=== PATIENT | female | born 1975 | race Caucasian/White ===

== ENCOUNTER → 2016-09-29 | Outpatient (CLI) | payer BC ==
--- NOTE | ~2016-09-29 | MY11 ---
[facility] A Service of [facility] RADIOLOGY TEXT RESULTS PATIENT: ALYSHA GARCÍA LOCATION: [facility] : 73 UNIT #: [id number] AGE: [address]: Mason Barron MD SEX: F ORDER DR: [id number] [address] [id number] O MR#: [id number] Acc #: [id number] NAME: ALYSHA GARCÍA : 1975 SEX: F STUDY DATE/TIME: 09/29/2016 8:06 UNIT: [facility] ROOM: STUDY DESCRIPTION: MY Mammogram Screening Dig Aakash Attending Physician: Mason Barron M.D. Referring Physician: Mason Barron M.D. Ordering Physician: Mason Barron M.D. Primary Care Physician: Mason Barron M.D. MEDICAL IMAGING REPORT This report is preliminary unless electronic signature is present EXAM Digital screening mammogram with CAD INDICATION Routine screening. PROCEDURE Bilateral CC and MLO views obtained on a digital mammography unit. FDA-approved CAD device was utilized. COMPARISON 06/13/2015. FINDINGS Heterogeneous fibroglandular density. There is no dominant mass or suspicious calcification. IMPRESSION Negative screening mammogram. Screen interval in 1 year suggested. Patients over the age of 40 are entered into a reminder system with target due date for the next mammogram. A result letter will also be sent to the patient. BIRADS: 1 Negative Dictated by... Ovidio Watson M.D. THIS IS AN ELECTRONICALLY VERIFIED REPORT Ovidio Watson M.D. at 09/30/2016 7:08 AM EED/mjs [facility] A Service [facility] RADIOLOGY TEXT RESULTS PATIENT: ALYSHA GARCÍA LOCATION: [facility] : 73 UNIT #: [id number] AGE: [address]: Mason Barron MD SEX: F ORDER DR: TD: 09/29/2016 11:09 JOB #: [id number] MEDICAL IMAGING REPORT COPY
== END | disposition home or self-care (01) ==
LOC: CWCC 07:50
DX: Z12.31 Encounter for screening mammogram for malignant neoplasm of breast (principal)
CPT/HCPCS: G0202